=== PATIENT | female | born 1940 | race Caucasian/White ===

== ENCOUNTER → 2018-09-03 | Outpatient (CLI) | payer MEDICARE, BC ==
[~2018-09-03] MED LIST: ASCO-182 PO; ASPI81TA94 PO; CALC-852 PO; LOSA-51 PO; MULT-912 PO; OMEG-23 PO
--- NOTE | 2018-09-03 10:20 | RADIOLOGY IMAGING REPORT ---
FACILITY: [facility] PATIENT NAME: Anjali Briggs : 1940 MR: [id number] V: [id number] EXAM DATE: ORDERING PHYSICIAN: FREDERICK RYAN TECHNOLOGIST: Location: [facility] Patient: Anjali Briggs : 1940 Visit/Account:[id number] Date of Sevice: 09/03/2018 Right knee, three views. HISTORY: Right knee pain. COMPARISON: None. Small marginal osteophytes, small subchondral cysts, and moderate joint space narrowing are present i n the patellofemoral compartment. Small marginal osteophytes without joint space narrowing are prese nt in the medial and lateral compartments. Mild spurring is present along the intercondylar tibial e minence. No joint effusion. No acute fractures. The bones are osteopenic. A few vascular calcific ations are scattered in the soft tissues. IMPRESSION: Moderate osteoarthritis. Report Dictated By: Bryce Jackson MD at 09/03/2018 10:15 AM Report E-Signed By: Bryce Jackson MD at 09/03/2018 10:17 AM WSN:[email or web address]
== END ==
LOC: RAD 09:36
PROVIDERS: ATTEND Physician Assistant
DX: M17.11 Unilateral primary osteoarthritis, right knee (principal)